=== PATIENT | female | born 1990 | race Caucasian/White ===

== ENCOUNTER 2016-09-13 15:16 | Emergency (ER) | payer OTHER ==
[~2016-09-13] VITALS: Wt 86.2 kg
[~2016-09-13 15:16] MED LIST: ADDERALL 20 MG20 MG PO; AMOXICILLI250 MG/5 M PO; ATIVAN0.5 MG PO; AUGMENTIN 400100 ML PO; AUGMENTIN ES-6100 ML PO; CATAFLAM50 MG PO; CIPRO750 MG; DUONEB 3ML 3 MG/3 ML NEB; FLONASE 0.05% 121 EA NAS; FURADANTIN PO; MACROBID100 M1 PO; NKHM; PHENERGAN W/DM120 ML PO; PRENATAL 191 CTB PO; PROVERA10 MG PO; SULFAMETHOXAZOLE5 M1 PO; ZANTAC150 MG PO; ZOFRAN4 MG PO; ZOFRAN4 MG/5 ML PO; ZYRTEC10 MG PO
[2016-09-13] MEDS ORDERED: ZYRTEC10 M3 PO (17:15)
[2016-09-13] MEDS ORDERED: CEFDINIR250 MG/5 M PO ×2 (17:15→17:22)
== END 2016-09-13 17:19 | disposition home or self-care (01) ==
LOC: ED 15:16
DX: H65.111 Acute and subacute allergic otitis media (mucoid) (sanguinous) (serous), right ear (principal); F17.200 Nicotine dependence, unspecified, uncomplicated; Z79.899 Other long term (current) drug therapy